=== PATIENT | male | born 1975 | race Caucasian/White ===

== ENCOUNTER 2018-03-11 00:34 | Emergency (ER) | payer MEDICAID ==
[~2018-03-11] VITALS: Ht 177.8 cm; Wt 93.2 kg
[2018-03-11 00:49] VITALS: Ht 177.8 cm; Wt 93.2 kg
[2018-03-11] MEDS ORDERED: CLEOCIN HCL150 MG PO (01:03)
[2018-03-11] MEDS ORDERED: VOLTAREN100 MG PO (01:03)
[2018-03-11] MEDS ORDERED: TESSALON PERLE100 MG PO (01:04)
[2018-03-11] MEDS ORDERED: EFFEXOR XR150 MG PO (01:04)
[2018-03-11] MEDS ORDERED: BACTRIM DS TABL1 TAB PO (01:04)
[2018-03-11] MEDS ORDERED: SEROQUEL50 MG PO (01:05)
[2018-03-11 01:46] LABS: APPEARANCE CLEAR (CLEAR); BILIRUBIN NEGATIVE (NEGATIVE); COLOR YELLOW (YELLOW); GLUCOSE NEGATIVE (NEGATIVE); KETONE NEGATIVE (NEGATIVE); NITRITE NEGATIVE (NEGATIVE); PROTEIN NEGATIVE (NEGATIVE); SPECIFIC GRAVITY 1.015 (1.005-1.020); UROBILINOGEN NORMAL (NORMAL)
[2018-03-11 01:54] LABS: UDS - AMPHET NEGATIVE QUAL (NEGATIVE); UDS - BARB NEGATIVE QUAL (NEGATIVE); UDS - BENZO NEGATIVE QUAL (NEGATIVE); UDS - COCAINE NEGATIVE QUAL (NEGATIVE); UDS - OPIATE NEGATIVE QUAL (NEGATIVE); UDS - PCP NEGATIVE QUAL (NEGATIVE); UDS - THC NEGATIVE QUAL (NEGATIVE)
[2018-03-11 02:03] LABS: BASOPHILS 0.2 % (0-2); EOSINOPHILS 2.9 % (0-7); HEMATOCRIT 39.9 % (42.0-54.0); HEMOGLOBIN 13.7 g/dL (13.5-17.5); IMMATURE GRANULOCYTES 0.2 % (0-5); LYMPHOCYTES 16.9 % (15-50); MCH 28.9 pg (26.0-34.0); MCHC 34.3 g/dL (31.0-37.0); MCV 84.2 fL (80.0-100.0); MEAN PLATELET VOLUME 8.6 fL (7.4-10.4); MONOCYTES 5.8 % (2-11); PLATELET COUNT 256 10x3/uL (130-400); RBC 4.74 10x6/uL (4.20-6.10); RDW 12.9 % (11.5-14.5); WBC 10.2 10x3/uL (4.8-10.8)
[2018-03-11 02:18] LABS: ALBUMIN 3.8 g/dL (3.4-5.0); ALKALINE PHOSPHATASE 53 U/L (46-116); ALT (SGPT) 38 U/L (10-68); BILIRUBIN - TOTAL 0.12 mg/dL (0.2-1.3); CALC OSMOLALITY 279 mosm/kg (275-300); CALCIUM 8.1 mg/dL (8.5-10.1); CARBON DIOXIDE 19.1 mmol/L (21.0-32.0); CHLORIDE - SERUM 102 mmol/L (98-107); CREATININE - SERUM 1.1 mg/dL (0.6-1.3); GLUCOSE 107 mg/dL (74-106); PROTEIN - SERUM 7.3 g/dL (6.4-8.2); SODIUM 138 mmol/L (136-145); UREA NITROGEN 25 mg/dL (7-18); eGFR NON AFRICAN AMERICAN 79 mL/min (90-120)
[2018-03-11 02:27] LABS: THYROID STIMULATING HORMONE 1.15 uIU/mL (0.36-3.74)
[2018-03-11 07:00] VITALS: BP 113/78
== END 2018-03-11 07:25 ==
LOC: D.ER 00:34
PROVIDERS: Family Medicine
DX: R45.851 Suicidal ideations (principal); F10.129 Alcohol abuse with intoxication, unspecified; F17.200 Nicotine dependence, unspecified, uncomplicated

== ENCOUNTER 2020-05-13 05:45 | Emergency (ER) | payer SELFPAY ==
[~2020-05-13] VITALS: Ht 177.8 cm; Wt 77.3 kg
[~2020-05-13 05:45] MED LIST: BACTRIM DS TABL1 TAB PO; CLEOCIN HCL150 MG PO; EFFEXOR XR150 MG PO; SEROQUEL50 MG PO; TESSALON PERLE100 MG PO; VOLTAREN100 MG PO
[2020-05-13 05:50] VITALS: Ht 177.8 cm; Wt 77.3 kg
[2020-05-13] MEDS ORDERED: NORCO 7.5-3251 EACH PO (06:50)
[2020-05-13 06:59] VITALS: BP 119/89
== END 2020-05-13 06:59 | disposition home or self-care (01) ==
LOC: D.ER 05:45
DX: S62.304A Unspecified fracture of fourth metacarpal bone, right hand, initial encounter for closed fracture (principal); W22.8XXA Striking against or struck by other objects, initial encounter; Y93.9 Activity, unspecified; Y92.9 Unspecified place or not applicable; M79.641 Pain in right hand